=== PATIENT | male | born 1945 | race Caucasian/White ===

== ENCOUNTER → 2025-09-30 13:06 | Outpatient (CLI) | payer MEDICARE, BC, SELFPAY ==
--- NOTE | 2025-09-30 13:09 | DI.MRI.S_ITS ---
PROCEDURE: MR PELVIC PROSTATE PROTOCOL INDICATIONS: Malignant neoplasm of prostate TECHNIQUE: Coronal HASTE, axial T1 FSE with fat saturation, 3-plane nonbreath-hold T2 FSE. After the administration of contrast, dynamic axial, delayed axial and coronal VIBE or 2-D FLASH with fat saturation through the pelvis. Diffusion weighted imaging and ADC was performed. COMPARISON: None. FINDINGS: Image quality: Diffusion weighted and dynamic contrast enhanced images are diagnostic. Prostate: Gland size is 4.6 x 3.4 x 4.3 cm; ellipsoid gland volume is 35 mL. PSA density was not calculated due to no PSA available. Diffuse mild T2 hypointensity seen throughout the peripheral zone with an indistinct area slightly more hypointense signal in the posterolateral right peripheral zone at a mid gland level. This area of signal blurs the margin of the pseudo capsule. There is no restricted diffusion or unique enhancement in this area. No other focal prostate lesions. A coronally oriented fluid collection with a thick wall measuring roughly 0.7 cm is present in the rectoprostatic fat. This collection measures about 3.6 x 2.4 x 1.7 cm and on axial imaging appears to arise from the right anterior serosal surface of the rectum. This is best seen on axial series 4 images 3 through eight. The inner wall demonstrates arterial enhancement. Genitourinary system: Bladder wall thickness is normal. Distal ureters are non distended. Bowel and peritoneum: No pathologic free pelvic fluid. Inferior colon and small bowel loops are normal in caliber. Nodes and vessels: Vasculature is patent and normal caliber. Bilateral prominent external iliac chain nodes measuring about 1.1 cm in short axis bilaterally. Proximal bilateral external iliac chain nodes, largest measuring 8 mm on the left. Small shotty common iliac nodes. Several round posterior mesorectal lymph nodes, largest measuring about 8 mm, series 2, images 94, 77, and 24. Soft tissues: Small fat containing left inguinal hernia. Bones: There is a peripherally enhancing left hip effusion and T2 hyperintense signal in the superior femoral head along with asymmetric degenerative osseous changes. Marrow demonstrates otherwise normal signal, without lesions to suggest metastases. IMPRESSION: Normal size prostate gland with mild diffuse T2 hypointensity, possibly treatment related change. Thick-walled, enhancing fluid collection filling the rectoprostatic fat. Differential diagnosis includes both benign and malignant etiologies. This could be postinflammatory, treatment related, iatrogenic, or neoplastic. Further evaluation and tissue sampling recommended. Bilateral pelvic adenopathy in several areas, predominantly seen in the posterior mesorectal fat. This raises the possibility of primary rectal malignancy rather than prostatic malignancy. Correlate clinically. Dictated by: Mary Davis M.D. on 10/01/2025 at 8:48 Approved by: Mary Davis M.D. on 10/01/2025 at 9:39
== END ==
LOC: MRI 13:08
PROVIDERS: PCP Student in an Organized Health Care Education/Training Program; Referring Provider Physician Assistant; Visit Provider Physician Assistant
DX: C61 Malignant neoplasm of prostate (principal); R59.0 Localized enlarged lymph nodes; K40.90 Unilateral inguinal hernia, without obstruction or gangrene, not specified as recurrent
CPT/HCPCS: 72197; A9579